=== PATIENT | female | born 1945 | race Caucasian/White ===

== ENCOUNTER 2018-04-25 07:22 | Day surgery (SDC) | payer OTHER ==
[2018-04-25] MEDS ORDERED: NA CHLORIDE 0.9% 500 ML ONE (07:47)
[2018-04-25] MEDS ORDERED: TETRACAINE HCL 0.5% 2ML OPTH ONE (07:47)
[2018-04-25] MEDS ORDERED: LIDOCAINE 2% MPF 5 ML VIAL ONE (07:47)
[2018-04-25] MEDS ORDERED: LIDOCAINE HCL/PF 3.5% OPTH GEL ONE (07:47)
[2018-04-25] MEDS: CYCLOPENTOLATE 1% OPTH 2 ML ONE ×3 (08:00→08:25)
[2018-04-25] MEDS: PHENYLEPHRINE 10% OPTH 5ML ONE ×3 (08:00→08:25)
[2018-04-25] MEDS ORDERED: NS 0.9% VIAL 10 ML ONE (08:22)
[2018-04-25] MEDS ORDERED: BSS OPTHALMIC SOL 15 ML BOT OPTH ONE (08:23)
[2018-04-25] MEDS ORDERED: LIDOCAINE 1% MPF 2 ML AMPULE ONE (08:23)
[2018-04-25] MEDS: BALANCED SALT IRRIG PLAIN 500 ML BTL IRR ONE ×2 (08:49→09:19)
[2018-04-25] MEDS: MOXIFLOXACIN HCL 10 DROPS/ML **OR USE OPTH ONE ×2 (08:50→09:19)
[2018-04-25] MEDS: EPINEPHRINE/PF 1 MG/ML AMP ONE ×2 (08:50→09:19)
[2018-04-25] MEDS: DUOVISC 1 KIT OPTH ONE ×2 (08:50→09:19)
[2018-04-25] MEDS ORDERED: BUPIVACAINE 0.25% PF 30 ML VIAL ONE (08:54)
[2018-04-25] MEDS ORDERED: FENTANYL CITR 100 MCG/2 ML ONE (09:05)
[2018-04-25] MEDS ORDERED: MIDAZOLAM HCL 2 MG/2 ML INJ ONE (09:06)
--- NOTE | 2018-04-25 10:00 | P.BOP ---
Preoperative diagnosis: Nuclear sclerotic, posterior subcapsular cataract, regular astigmatism OS Postoperative diagnosis: Same Primary procedure: Phacoemulsification with IOL OS Estimated blood loss: None Anesthesia: Local (Topical with anesthesia for cataract surgery) Complications: None Implants: [id number] +24.5 @ 136 Transferred to: Other (Day surgery) Condition: Good
--- NOTE | 2018-04-25 21:16 | OP ---
Date of Procedure: 04/25/2018 Surgeon: Brionna Landry MD Anesthesiologist: Gaby Maria CRNA Preoperative Diagnosis: Nuclear sclerotic posterior subcapsular cataract, left eye and regular astigmatism, left eye. Operation Performed: Phacoemulsification with toric intraocular lens implant, left eye. Anesthesia: Anesthesia per cataract surgery. Complications: None. Description Of Procedure: In the operating room the patient was prepped and draped in the usual sterile fashion for ophthalmic surgery. A lid speculum was placed in the left eye. Two paracentesis sites were made superiorly and inferiorly in the limbal cornea. Viscoat was placed in the anterior chamber and a crescent blade was used to make a corneal groove and tunnel, and a keratome was used to enter the anterior chamber. Provisc was placed in the anterior chamber and a 360 degree capsulotomy was performed with a cystitome. The lens was hydrodissected with BSS and rotated freely. The lens was removed with a stop and chop technique. A 10.07 phaco CDE was used to remove the lens. Residual cortex was removed with the irrigation and aspiration. Provisc was placed in the capsular bag. A [id number] +24.5 at 136 lens was placed in the capsular bag without complications. Irrigation and aspiration was used to remove residual viscoelastic. The paracentesis sites were hydrated with BSS. The wound and paracentesis sites were inspected and found to be watertight. Vigamox 0.07 cc was placed intracamerally at the end of the procedure. The eye was irrigated with balanced salt solution. The eye was patched with a soft cotton patch and Arias metal shield. The patient was returned to day surgery in good condition. Comments: Akten was placed in the eye in day surgery and irrigated out of the eye with BSS in the OR. Preservative free 1% lidocaine was placed in the anterior chamber prior to Viscoat. Discharge Instructions: Ms. Carlton is discharged to home in good condition and is to follow up with Dr. Landry in the morning. MEHUL/ELOY Voice ID: [id number] Report ID: [id number] RICHY
== END 2018-04-25 10:31 | disposition home or self-care (01) ==
LOC: OR 07:22
PROVIDERS: ATTEND Ophthalmology Retina Specialist
PROC: 08RK3JZ Replacement of Left Lens with Synthetic Substitute, Percutaneous Approach (ICD-10-PCS; principal; 2018-04-25 09:10)
DX: H25.12 Age-related nuclear cataract, left eye (principal); H25.042 Posterior subcapsular polar age-related cataract, left eye; H52.222 Regular astigmatism, left eye
CPT/HCPCS: 66984; J0171; J2001; J2250; J3010; V2787

== ENCOUNTER 2018-10-24 11:48 | Day surgery (SDC) | payer OTHER ==
[2018-10-24] MEDS: CYCLOPENTOLATE 1% OPTH 2 ML ONE ×3 (12:05→12:15)
[2018-10-24] MEDS ORDERED: BUPIVACAINE 0.25% PF 10 ML VIAL ONE (12:08)
[2018-10-24] MEDS ORDERED: LIDOCAINE 2% MPF 5 ML VIAL ONE ×2 (12:08→12:13)
[2018-10-24] MEDS ORDERED: TETRACAINE HCL 0.5% 4ML OPTH ONE (12:08)
[2018-10-24] MEDS ORDERED: LIDOCAINE HCL/PF 3.5% OPTH GEL ONE (12:09)
[2018-10-24] MEDS: PHENYLEPHRINE 10% OPTH 5ML ONE ×2 (12:10→12:15)
[2018-10-24] MEDS ORDERED: NA CHLORIDE 0.9% 500 ML ONE (12:10)
[2018-10-24] MEDS ORDERED: PROPOFOL 200 MG/20 ML VIAL IV ONE (12:13)
[2018-10-24] MEDS ORDERED: NS 0.9% VIAL 10 ML ONE (12:26)
[2018-10-24] MEDS ORDERED: EPINEPHRINE/PF 1 MG/ML AMP ONE (12:26)
[2018-10-24] MEDS ORDERED: DUOVISC 1 KIT OPTH ONE ×2 (12:27→12:41)
[2018-10-24] MEDS ORDERED: BALANCED SALT IRRIG PLAIN 500 ML BTL IRR ONE ×2 (12:27→12:40)
[2018-10-24] MEDS ORDERED: MOXIFLOXACIN HCL 10 DROPS/ML **OR USE OPTH ONE ×2 (12:28→12:40)
[2018-10-24] MEDS ORDERED: LIDOCAINE 1% MPF 2 ML AMPULE ONE (12:28)
[2018-10-24] MEDS ORDERED: MIDAZOLAM HCL 2 MG/2 ML INJ ONE (12:52)
[2018-10-24] MEDS ORDERED: FENTANYL CITR 100 MCG/2 ML ONE (12:52)
--- NOTE | 2018-10-24 13:22 | P.BOP ---
Preoperative diagnosis: Nuclear sclerotic and PSC and regular astigmatism OD Postoperative diagnosis: Same Primary procedure: Phacoemlusification with Toric IOL OD Estimated blood loss: None Complications: None Implants: [id number] +22.0 @ 160 Transferred to: Other (Day surgery) Condition: Good
--- NOTE | 2018-10-24 23:49 | OP ---
Date of Procedure: 10/24/2018 Surgeon: Brionna Landry MD Anesthesiologist: Gaby Maria CRNA and Jaren Whitney MD. Preoperative Diagnoses: Nuclear sclerotic and posterior subcapsular cataract and regular astigmatism , right eye. Operation Performed: Phacoemulsification with Toric intraocular lens implant, right eye. Anesthesia: Per cataract surgery. Complications: None. Description Of Procedure: In the operating room the patient was prepped and draped in the usual ster ile fashion for ophthalmic surgery. A lid speculum was placed in the right eye. Two paracentesis si bao were made superiorly and inferiorly in the limbal cornea. Viscoat was placed in the anterior maris mber and a crescent blade was used to make a corneal groove and tunnel, and a keratome was used to en ter the anterior chamber. Provisc was placed in the anterior chamber and a 360 degree capsulotomy wa s performed with a cystitome. The lens was hydrodissected with BSS and rotated freely. The lens was removed with a stop and chop technique. 3.78 phaco CDE was used to remove the lens. Residual martha x was removed with the irrigation and aspiration. Provisc was placed in the capsular bag. A [id number] +22.0 at 160 degrees lens was placed in the capsular bag without complications. Irrigation and aspir ation were used to remove residual viscoelastic. The paracentesis sites were hydrated with BSS. The wound and paracentesis sites were inspected and found to be watertight. Vigamox 0.07 cc was placed intracamerally at the end of the procedure. The eye was irrigated with balanced salt solution. The eye was patched with a soft cotton patch and Arias metal shield. The patient was returned to day surgery in good condition. Comments: Akten was placed in the eye in Day Surgery and irrigated out of the eye with BSS in the OR . Preservative-free 1% lidocaine was placed in the anterior chamber prior to Viscoat. Discharge Instructions: Ms. Carlton is discharged to home in good condition and is to follow up with Fidencio Landry in the morning. MEHUL/ELOY Voice ID: [id number] Report ID: [id number]
== END 2018-10-24 13:48 | disposition home or self-care (01) ==
LOC: OR 11:48
PROVIDERS: ATTEND Ophthalmology Retina Specialist
PROC: 08RJ3JZ Replacement of Right Lens with Synthetic Substitute, Percutaneous Approach (ICD-10-PCS; principal; 2018-10-24 11:30)
DX: H25.11 Age-related nuclear cataract, right eye (principal); H25.041 Posterior subcapsular polar age-related cataract, right eye; H52.221 Regular astigmatism, right eye
CPT/HCPCS: 66984; J0171; J2250; J2001; J2704; J3010